=== PATIENT | female | born 1980 | race Caucasian/White ===

== ENCOUNTER → 2017-12-27 | Outpatient (CLI) | payer OTHER ==
[~2017-12-27] MED LIST: FLEXERIL PO; FOLIC ACID 1 MG1 MG GT; HYDROCODON-ACE1 EAC7 PO; IBUPROFEN 600600 M1 PO; LEVOTHYROXIN0.112 M1 PO; LEVOTHYROXIN0.125 M1; PRENATAL; TOPAMAX50 MG PO; VICODIN 5-5001 EACH PO; VITAMIN B-12500 MCG; VITAMIN B-12500 MCG PO; ZOFRAN ODT4 MG PO
== END ==
LOC: M.MRI 12-24 08:30
DX: M50.222 Other cervical disc displacement at C5-C6 level (principal); M51.24 Other intervertebral disc displacement, thoracic region; E03.9 Hypothyroidism, unspecified; M54.12 Radiculopathy, cervical region; R53.1 Weakness

== ENCOUNTER → 2020-07-29 | Outpatient (CLI) | payer OTHER ==
--- NOTE | ~2020-07-29 | EEG ---
[place] [address] EEG STUDY REPORT Name: WILLIS CUMMINGS Room: [facility]#: [id number] Admission: 07/29/20 Attend Phys: Obed Kim MD Discharge: Date of : 78 Report #: [id number] THIS REPORT FOR: cc: Ann Vu Maggie M. DO Khosla, Parveen K. MD ~ DOC #: [id number] Obed Kim MD DATE OF SERVICE: 07/29/2020 This patient is being evaluated for the possibility of seizure. EEG was done by placing the electrode by standard 10-20 system of electrode placement. Both referential and sequential montages were used for recording. Background activity in this patient's EEG is about 9 Hz and 30 microvolt. The patient became drowsy and that is associated with bilateral slowing and vertex sharp wave. Photic stimulation is unremarkable. Throughout the record, no active epileptiform activity was noticed. IMPRESSION: This patient's EEG demonstrates some theta range slowing on both sides. That is a nonspecific abnormality which can occur with drowsiness effect of psychotropic medication, etc. No active seizure activity was noticed during this record. Thank you very much for this referral. Obed Kim MD PK/DENNYS By: [id number] Kim MD /eliecer
[2020-07-29 14:03] LABS: ALBUMIN 3.5 g/dL (3.4-5.0); CALCIUM 8.6 mg/dL (8.5-10.1); CREATININE 0.8 mg/dL (0.6-1.3); POTASSIUM 4.4 mmol/L (3.5-5.1); TOTAL BILIRUBIN 0.2 mg/dL (<0.1-1.0); TOTAL PROTEIN 6.7 g/dL (6.4-8.2)
[2020-07-29 21:06] LABS: IgA 74 mg/dL (87-352); IgG 732 mg/dL (586-1602); IgM 160 mg/dL (26-217)
[2020-08-01 10:08] LABS: ANTI-SSA <0.2 AI (0.0-0.9)
== END ==
LOC: M.MRI 07-19 11:54
PROVIDERS: ATTEND Psychiatry & Neurology Neuromuscular Medicine
DX: R56.9 Unspecified convulsions (principal); G62.9 Polyneuropathy, unspecified